=== PATIENT | female | born 1935 | race Caucasian/White ===

== ENCOUNTER 2021-11-23 22:33 | Emergency (ER) | payer OTHER, MEDICARE ==
[~2021-11-23] VITALS: Ht 167.6 cm; Wt 84.8 kg
[~2021-11-23 22:33] MED LIST: ASPI-1155 PO; ATEN50TA PO; GLIP5TAB13 PO; LOSA100T3 PO; PRAV80TA20 PO
[2021-11-23 22:36] VITALS: BP_SYST 145
--- NOTE | 2021-11-23 22:40 | NUR ---
Pt from [facility] BIB [facility] [place] [facility] with c/o lower blood glucose 30 at [facility]. Pt was given Glucagon 1mL in route, BG 84 on arrival. Arrive with 20G IV in RAC. Pt A&O x0, per SNF pt is A&O X2 at baseline. Pt BP 141/117, made aware. Pt reporting overall body aches.
--- NOTE | 2021-11-23 22:50 | NUR ---
Pt is A&o x2 at the moment, to person and place. Blood glucose 122. made aware.
[2021-11-23] MEDS ORDERED: cloNIDine HCL 0.1 MG TABLET PO ONE (23:15)
[2021-11-23 23:38] LABS: BASOPHILS # (AUTO) 0.1 K/uL (0.0-0.2); BASOPHILS % (AUTO) 0.9 % (0.0-2.0); EOSINOPHILS # (AUTO) 0.1 K/uL (0.0-0.4); EOSINOPHILS % (AUTO) 0.9 % (0.0-4.0); HEMATOCRIT 35.4 % (36-48); HEMOGLOBIN 12.1 g/dL (12.0-16.0); LYMPHOCYTES % (AUTO) 9.8 % (20.5-51.5); MEAN CORPUSCULAR HEMOGLOBIN 29 pg (27-31); MEAN CORPUSCULAR HGB CONC 34 % (32-36); MEAN CORPUSCULAR VOLUME 85 fL (79.0-98.0); MONOCYTES # (AUTO) 0.6 K/uL (0.0-1.0); MONOCYTES % (AUTO) 5.6 % (1.7-9.3); NEUTROPHILS # (AUTO) 8.6 K/uL (1.8-7.7); NEUTROPHILS % (AUTO) 82.8 % (40.0-70.0); PLATELET COUNT (AUTO) 315 K/uL (130-430); RED BLOOD CELL COUNT(AUTO) 4.17 MIL/uL (4.2-6.2); RED CELL DISTRIBUTION WIDTH 13.3 % (9.0-15.0); WHITE BLOOD COUNT (AUTO) 10.4 K/uL (4.8-10.8)
[2021-11-23 23:57] LABS: ANION GAP 7 (5-15); CALCIUM 8.5 mg/dL (8.4-11.0); CHLORIDE 101 mmol/L (98-107); CREATININE 0.97 mg/dL (0.55-1.30); GLUCOSE 148 mg/dL (70-99); POTASSIUM 3.6 mmol/L (3.5-5.1); UREA NITROGEN, BLOOD 14 mg/dL (8-21)
[2021-11-24 00:02] LABS: ALANINE AMINOTRANSFERASE 12 U/L (12-78); ASPARTATE AMINOTRANSFERASE 12 U/L (10-37); TOTAL BILIRUBIN 0.2 mg/dL (0.0-1.0)
--- NOTE | 2021-11-24 00:21 | NUR ---
PAT Rashid at bedside.
--- NOTE | 2021-11-24 01:30 | NUR ---
Influenza A and B, Covid 19 specimens collected and sent to lab
--- NOTE | 2021-11-24 02:00 | NUR ---
Patient's daughter at bedside.
[2021-11-24] MEDS ORDERED: CEPH-548 PO (02:07)
[2021-11-24] MEDS ORDERED: cefTRIAXone 1 GM VIAL IM ONE (02:15)
[2021-11-24 02:16] LABS: BILIRUBIN,URINE NEGATIVE (NEGATIVE); BLOOD, URINE 1+ (NEGATIVE); CLARITY/URINE CLEAR (CLEAR); COLOR,URINE YELLOW (YELLOW); GLUCOSE,URINE NEGATIVE (NEGATIVE); KETONES,URINE NEGATIVE (NEGATIVE); LEUKOCYTE ESTERASE ,URINE 3+ (NEGATIVE); NITRITE, URINE NEGATIVE (NEGATIVE); PROTEIN URINE NEGATIVE (NEGATIVE); UROBILINOGEN,URINE 0.2 (0.2-1.0)
[2021-11-24 02:41] LABS: BACTERIA,URINE MODERATE /HPF (None Seen); WBC,URINE 80-100 /HPF (0-3)
[2021-11-24 02:43] LABS: MUCUS,URINE 1+ /LPF (None Seen)
[2021-11-24 03:19] VITALS: BP_SYST 131
--- NOTE | 2021-11-24 03:19 | NUR ---
Patient given written and verbal discharge instructions and verbalizes understanding. ER MD discussed with patient the results and treatment provided. Patient in stable condition. ID arm band removed. Rx of Cephalexin given. Patient educated on pain management and to follow up with PMD. Pain Scale 0/10. Opportunity for questions provided and answered. Medication side effect fact sheet provided. Patient accompanied by daughter and in stable condition upon discharge.
== END 2021-11-24 03:19 | disposition home or self-care (01) ==
LOC: SED 22:33
DX: E11.649 Type 2 diabetes mellitus with hypoglycemia without coma (principal); E16.2 Hypoglycemia, unspecified; R41.0 Disorientation, unspecified; I10 Essential (primary) hypertension; Z87.440 Personal history of urinary (tract) infections; Z88.5 Allergy status to narcotic agent; Z88.8 Allergy status to other drugs, medicaments and biological substances; Z88.6 Allergy status to analgesic agent; Z79.899 Other long term (current) drug therapy; Z20.822 Contact with and (suspected) exposure to COVID-19
CPT/HCPCS: 99284; 87426; 80053; 81000; 82962; 85025; 87086; 36415; 87804 ×2; 71045; 96372; J0696